=== PATIENT | female | born 1990 | race Caucasian/White ===

== ENCOUNTER 2020-02-28 10:17 | Emergency (ER) | payer OTHER, MEDICAID, SELFPAY ==
[2020-02-28] VITALS (9 sets, daily range): BP systolic 98–127; BP diastolic 51–98; PULSE 64–88; RESP 16; TEMP 36.7; O2SAT 97–100; BMI 32.9
--- NOTE | 2020-02-28 10:50 | ED_ITS ---
HPI - General Chief complaint: Abdominal Pain Stated complaint: sharp pains 8 1/2 weeks Time Seen by Provider: 02/28/20 10:27 Source: patient Mode of arrival: Ambulatory History of Present Illness HPI Narrative: Patient is a 29-year-old female who is currently 8 weeks presenting with sharp left lower quadrant pain. She says that she has had some spotting off and on up to quarter size for couple of days however yesterday she had significant sharp shooting pains on the left side have lasted for a little while but went away. She now is having some mild pain on the right side. She has been feeling nauseous during this but currently does not feel nauseated no vomiting. Normal bowel movements no fever. MD Complaint: abdominal pain Onset (ago): day(s) (1) Pain Consistency: intermittent Patient : Yes Related Data Allergies Allergy/AdvReac Type Severity Reaction Status Date / Time cefixime [From Suprax] Allergy Severe ITCHING Verified 02/28/20 10:43 Review of Systems Review of Systems Narrative: GENERAL: Denies chills, fatigue, malaise, fever, sweats, travel HEENT: Denies sinus pain, ear pain, sore throat, difficulty swallowing, neck flor[place] n RESPIRATORY: Denies dyspnea, cough, wheezing, hemoptysis, sputum. CARDIOVASCULAR: Denies chest pain, palpitations, orthopnea, edema GASTROINTESTINAL: See HPI : Denies dysuria, frequency, incontinence, hematuria, urinary retention, flank pain. MUSCULOSKELETAL: Denies weakness, joint pain, or bony pain SKIN: No rash, no erythema, no pruritus NEUROLOGIC: Denies weakness, dizziness, headache, numbness, change in speech, confusion PSYCHIATRIC: No concerning psychosocial issues. 12 point review of systems is negative except for those stated above and HPI PMFSH - Past Medical History Medical history: Reports no medical history Surgical history: Reports SLEEP MEDICINE PHYSICIAN history: Reports No SLEEP MEDICINE PHYSICIAN History Patient : Yes Psychiatric history: Reports no psych history Exam Initial Vital Signs Initial Vital Signs: Vital Signs Temperature 98.0 F 02/28/20 10:17 Pulse Rate 88 02/28/20 10:17 Respiratory Rate 16 02/28/20 10:17 Blood Pressure 127/98 H 02/28/20 10:17 Pulse Oximetry 99 02/28/20 10:17 GENERAL: Well-appearing, well-nourished and in no acute distress. HEENT: Head atraumatic,EOMI, pupils reactive, face symmetric CARDIOVASCULAR: Regular rate and rhythm without murmurs, rubs or gallops. RESPIRATORY: Breath sounds equal bilaterally, no wheezes rales or rhonchi. ABDOMEN: Soft, left lower quadrant pain no guarding or rebound PELVIC: External genitalia is normal, no vaginal bleeding, no vaginal discharge, no odor, cervical os is closed, mild right adnexal tenderness no left adnexal tenderness : No CVA tenderness EXTREMITIES: Normal range of motion, no clubbing or edema. Neurovascularly intact NEUROLOGICAL: Alert and oriented x4.Normal gait and speech. SKIN: Warm, dry, no laceration, no petechiae, no rashes or lesions. Course Orders Ordered: ED Orders 02/28/20 10:49 US OB <= 14 weeks fetus Stat 02/28/20 10:52 ABO RH Type Stat Complete Blood Count AUTO DIFF Stat Comprehensive Metabolic Panel Stat HCG Quantitative /Beta subunit Stat Vital Signs Vital signs: Vital Signs - 8 hr 02/28/20 10:17 02/28/20 10:29 02/28/20 11:01 Temperature 98.0 F Pulse Rate 88 81 67 Respiratory Rate 16 Blood Pressure 127/98 H 127/58 L 104/51 L Pulse Oximetry 99 99 97 02/28/20 11:30 02/28/20 12:00 02/28/20 12:30 Temperature Pulse Rate 69 Respiratory Rate Blood Pressure 101/57 L 98/54 L 98/53 L Pulse Oximetry 98 02/28/20 12:40 02/28/20 12:41 02/28/20 12:42 Temperature Pulse Rate 79 68 64 Respiratory Rate Blood Pressure 106/56 L 98/53 L 103/58 L Pulse Oximetry 98 99 100 MDM - OB/Uterine Contractions Lab Data Attestation: I reviewed the patient's lab results. Result diagrams: 02/28/20 10:52 02/28/20 10:52 Labs: Lab Results 02/28/20 02/28/20 02/28/20 Range/Units 10:52 10:52 10:52 WBC 9.4 (4.5-11.0) X10^3/uL RBC 4.47 (4.0-5.2) X10^6/uL Hgb 13.4 (12.0-16.0) g/dL Hct 39.4 (36-46) % MCV 88.1 (80-100) fL MCH 30.0 (26-34) PG MCHC 34.1 (30-36) % RDW 13.7 (11.6-14.8) % Plt Count 207 (150-400) X10^3/uL Neut % (Auto) 65.7 (50-75) % Lymph % (Auto) 24.5 L (25-40) % [place] % (Auto) 7.4 (3-14) % Eos % (Auto) 1.6 L (2-4) % Baso % (Auto) 0.8 (0-2) % Neut # (Auto) 6200 (3098-8532) /uL Lymph # (Auto) 2300 (1256-8931) /uL [place] # (Auto) 700 (0-900) /uL Eos # (Auto) 200 (0-450) /uL Baso # (Auto) 100 (0-100) /uL Sodium (137-145) mmol/L Potassium (3.4-5.1) mmol/L Chloride (98-107) mmol/L Carbon Dioxide (22-32) mmol/L BUN (7-17) mg/dL Creatinine (0.52-1.04) mg/dL Estimated GFR (>60) mL/min BUN/Creatinine Ratio (6-22) Glucose (70-100) mg/dL Calcium (8.4-10.2) mg/dL Total Bilirubin (0.2-1.3) mg/dL AST (14-36) IU/L ALT (<35) IU/L Alkaline Phosphatase (38-126) U/L Total Protein (6.3-8.2) g/dL Albumin (3.5-5.0) g/dL Globulin (1.7-4.1) g/dL Albumin/Globulin Ratio (1.0-2.8) HCG, Quant 14511 mIU/mL Blood Type A Positive 02/28/20 Range/Units 10:52 WBC (4.5-11.0) X10^3/uL RBC (4.0-5.2) X10^6/uL Hgb (12.0-16.0) g/dL Hct (36-46) % MCV (80-100) fL MCH (26-34) PG MCHC (30-36) % RDW (11.6-14.8) % Plt Count (150-400) X10^3/uL Neut % (Auto) (50-75) % Lymph % (Auto) (25-40) % [place] % (Auto) (3-14) % Eos % (Auto) (2-4) % Baso % (Auto) (0-2) % Neut # (Auto) (4860-0647) /uL Lymph # (Auto) (5897-6842) /uL [place] # (Auto) (0-900) /uL Eos # (Auto) (0-450) /uL Baso # (Auto) (0-100) /uL Sodium 137 (137-145) mmol/L Potassium 4.0 (3.4-5.1) mmol/L Chloride 105 (98-107) mmol/L Carbon Dioxide 24 (22-32) mmol/L BUN 14 (7-17) mg/dL Creatinine 0.52 (0.52-1.04) mg/dL Estimated GFR > 60.0 (>60) mL/min BUN/Creatinine Ratio 26.9 H (6-22) Glucose 83 (70-100) mg/dL Calcium 9.3 (8.4-10.2) mg/dL Total Bilirubin 0.3 (0.2-1.3) mg/dL AST 21 (14-36) IU/L ALT 15 (<35) IU/L Alkaline Phosphatase 47 (38-126) U/L Total Protein 7.6 (6.3-8.2) g/dL Albumin 4.4 (3.5-5.0) g/dL Globulin 3.2 (1.7-4.1) g/dL Albumin/Globulin Ratio 1.4 (1.0-2.8) HCG, Quant mIU/mL Blood Type Point of Care Testing Test Results Positive Urine Dip Bedside Urine Glucose Negative Bedside Urine Bilirubin - Negative Bedside Urine Ketone - Negative Urine Specific [place] 1.015 Bedside Urine Occult Blood - Negative Bedside Urine pH 7.5 Bedside Urine Protein +/- 15 Bedside Urine Urobilinogen - Negative Bedside Urine Nitrite - Negative Bedside Urine Leukocytes - Negative Esterase Imaging Data US - OB: Radiologist's Impression: PROCEDURE: US OB <= 14 WEEKS FETUS INDICATIONS: LLQ PAIN, SPOTTING OUTSIDE/PRIOR DATING DATA: Last menstrual period (LMP): 01/03/20. LMP-based estimated date of delivery ([place]): 10/09/20. First dating scan (date and location): 02/28/20. Estimated date of delivery ([place]) from first dating scan: 10/17/20. TECHNIQUE: Real-time scanning was performed of the fetus and maternal pelvic organs, with i mage documentation. Endovaginal scanning was also performed to better visualize the fetus and maternal ovaries. COMPARISON: None. FINDINGS: Embryo: A single live intrauterine is identified. A pole is well-seen with a crown-rump length of approximately 9 mm, correlating with an estimated gestational age of 6 weeks 6 days (sonographic [place] 10/17/20). cardiac motion was detected at 130 beats per minute. A yolk sac is well-seen and appears to be within normal limits. The gestational sac is unremarkable. There is a very small implantation hemorrhage identified along the periphery of the gestational sac. Maternal organs: A corpus luteum on the left ovary is identified, which is slightly enlarged. The right ovary was not definitely seen. No right adnexal abn ormality is appreciated. There may be a trace amount of free fluid within the maternal pelvis. Limited images through the kidneys demonstrate no hydronephrosis. IMPRESSION: 1. Single live intrauterine at 6 weeks 6 days (sonographic [place] 10/17/20). 2. Small implantation hemorrhage. The need for followup imaging may be determined clinically. Dictated by: Brandon Morocho M.D. on 02/28/2020 at 11:05 MDM Narrative Medical decision making narrative: Patient's transabdominal exam reveals left lower quadrant pain quite significant concern for ectopic. His pelvic exam she is actually having mild right adnexal tenderness without left adnexal tenderness. Ultrasound confirms IUP. Discharge Plan Departure Patient Disposition: Home Clinical Impression: Abdominal pain during in first trimester Discharge Date/Time: 02/28/20 12:49 Instructions: DI for Abdominal Pain -- Early Activity Restrictions/Additional Instructions: HCG= 77,767 *You have been diagnosed with pain with *What to do: Ultrasound confirms 6 weeks and 6 days date 10/17/2020 Recommend you have your hCG retested on please call the clinic that is following you to schedule this. Pain Is likely from fluid causing irritation. Recommend cindi chews for nausea *Continue to take medications as directed Tylenol 1000 mg every 6 hours if needed for pain *Follow up with your primary care provider in 2-3 days *Return to ER if you should have increased pain, vaginal bleeding, persistent vomiting or any new, worsening or concerning symptoms
[2020-02-28 11:07] LABS: Add Manual Diff / Slide Review NO; Basophils Absolute Auto 100 /uL (0-100); Basophils Percent Auto 0.8 % (0-2); Eosinophils Absolute Auto 200 /uL (0-450); Eosinophils Percent Auto 1.6 % (2-4); Hematocrit 39.4 % (36-46); Hemoglobin 13.4 g/dL (12.0-16.0); Lymphocytes Absolute Auto 2300 /uL (1100-4500); Lymphocytes Percent Auto 24.5 % (25-40); Mean Corpuscular HGB Conc 34.1 % (30-36); Mean Corpuscular Volume 88.1 fL (80-100); Monocytes Absolute Auto 700 /uL (0-900); Monocytes Percent Auto 7.4 % (3-14); Neutrophils Absolute Auto 6200 /uL (1500-7000); Neutrophils Percent Auto 65.7 % (50-75); Platelet Count 207 X10^3/uL (150-400); Red Blood Cell Count 4.47 X10^6/uL (4.0-5.2); Red Cell Distribution Width 13.7 % (11.6-14.8); White Blood Cell Count 9.4 X10^3/uL (4.5-11.0)
[2020-02-28 11:23] LABS: Alanine Aminotransferase 15 IU/L (<35); Albumin 4.4 g/dL (3.5-5.0); Albumin Globulin Ratio 1.4 (1.0-2.8); Alkaline Phosphatase 47 U/L (38-126); Aspartate Aminotransferase 21 IU/L (14-36); BUN Creatinine Ratio 26.9 (6-22); Bilirubin Total 0.3 mg/dL (0.2-1.3); Blood Urea Nitrogen 14 mg/dL (7-17); Calcium 9.3 mg/dL (8.4-10.2); Carbon Dioxide 24 mmol/L (22-32); Chloride 105 mmol/L (98-107); Estimated Glomerular Filt Rate > 60.0 mL/min (>60); Globulin 3.2 g/dL (1.7-4.1); Glucose 83 mg/dL (70-100); HEMOLYSIS < 15 (0-50); Sodium 137 mmol/L (137-145); Total Protein 7.6 g/dL (6.3-8.2)
[2020-02-28 12:06] LABS: HCG Quantitative /Beta subunit 77767 mIU/mL
== END 2020-02-28 12:49 | disposition home or self-care (01) ==
PROVIDERS: Emergency Provider Emergency Medicine
DX: O26.891 Other specified pregnancy related conditions, first trimester (principal); R10.32 Left lower quadrant pain; Z3A.01 Less than 8 weeks gestation of pregnancy
CPT/HCPCS: 36415; 76801; 76817; 80053; 81003; 81025; 84702; 85025; 86900; 86901; 99284